=== PATIENT | male | born 1990 | race Caucasian/White ===

== ENCOUNTER 2022-06-22 23:33 | Inpatient (IN) | payer OTHER, SELFPAY ==
--- NOTE | ~2022-06-22 | CT_ITS ---
EXAMINATION: CT ABDOMEN AND PELVIS WITH CONTRAST CLINICAL INFORMATION: Pain COMPARISON: None available. TECHNIQUE: Multidetector volumetric images were obtained from the superior aspect of the liver through the pubic symphysis following administration 85 mL of Omnipaque 350 intravenous contrast. Sagittal and coronal reformatted images were obtained on the technologist's workstation. Oral contrast: No This CT examination was performed using dose optimization techniques as appropriate, variously including the following: *Automated exposure control *Adjustment of mA and/or kV according to patient size (this includes techniques or standardized protocols for targeted exams where dose is matched to indication/reason for exam; i.e. extremities or head) *Use of iterative reconstruction technique DLP: 528 mGy-cm FINDINGS: LUNG BASES: The visualized lung bases are unremarkable. LIVER, GALLBLADDER, AND BILIARY TREE: The liver is normal in size, shape, and attenuation. No focal hepatic lesion or biliary ductal dilatation is present. The gallbladder is unremarkable with no evidence of radiopaque gallstones, gallbladder wall thickening, or obvious pericholecystic inflammatory changes. PANCREAS: Unremarkable. SPLEEN: Unremarkable. ADRENAL GLANDS: Unremarkable. KIDNEYS AND URETERS: The kidneys are normal in size, shape, and attenuation. No hydronephrosis, hydroureter, or calculi seen. No perinephric stranding. BLADDER: Unremarkable. GASTROINTESTINAL TRACT: The stomach is unremarkable. Normal caliber small bowel. No obstruction. Normal appendix. There is wall thickening with adjacent inflammation involving the left hemicolon spanning from the splenic flexure. No free air or free fluid. ABDOMINAL WALL: No significant hernia is appreciated. LYMPH NODES: Normal. VASCULAR: Unremarkable. PELVIC VISCERA: The prostate and seminal vesicles are unremarkable. OSSEOUS STRUCTURES: No acute or suspicious osseous abnormality. CT/CT abdomen pelvis w IV con IMPRESSION: Wall thickening with adjacent inflammation involving the left hemicolon, consistent with colitis. Fleischner guidelines were followed.
--- NOTE | ~2022-06-22 | XR_ITS ---
EXAMINATION: XR CHEST CLINICAL INFORMATION: Weakness COMPARISON: None available. TECHNIQUE: Frontal view of the chest was obtained. FINDINGS: Cardiac leads overlie the chest. The lungs are well expanded. There is no focal consolidation, edema, or effusion. No pneumothorax. The cardiomediastinal silhouette is within normal limits. No acute osseous abnormality. XR/XR chest 1V IMPRESSION: No acute pulmonary disease.
[2022-06-22 23:49] VITALS: BP 147/69; PULSE 145; RESP 20; TEMP 38.7; O2SAT 100; BMI 20.3
[2022-06-23] VITALS (9 sets, daily range): BP systolic 94–128; BP diastolic 43–66; PULSE 80–130; RESP 14–22; TEMP 36.6–37.4; O2SAT 96–99; BMI 20.3
[2022-06-23 00:32] LABS: MANUAL DIFF FLAG NO
[2022-06-23 00:36] LABS: Basophils Percent Auto 0.1 % (0-2); Hematocrit 40.9 % (42.0-52.0); Hemoglobin 14.6 g/dl (14.0-18.0); Imm Gran Abs Auto 0.07 X10*3/uL (0.00-0.03); Imm Gran Pct Auto 0.5 % (0.0-0.4); Lymphocytes Absolute Auto 0.5 X10*3/uL (1.2-4.9); Lymphocytes Percent Auto 3.7 % (20-40); Mean Corpuscular HGB Conc 35.7 g/dl (31.0-36.0); Mean Corpuscular Hemoglobin 31.6 pg (27.0-33.0); Mean Corpuscular Volume 88.5 fL (80.0-98.0); Mean Platelet Volume 9.3 fL (9.4-12.4); Monocytes Absolute Auto 1.1 X10*3/uL (0.1-1.2); Monocytes Percent Auto 8.1 % (2-11); Neutrophils Percent Auto 87.6 % (45-73); Platelet Count 181 X10*3/uL (160-400); Red Blood Count 4.62 X10*6/uL (4.60-5.80); Red Cell Distribution Width 11.9 % (11.0-16.0); White Blood Count 13.7 X10*3/uL (4.8-10.8)
[2022-06-23 00:46] LABS: Anion Gap 11 (12-20); Blood Urea Nitrogen 15 mg/dL (9-16); Calcium 8.5 mg/dL (8.4-10.2); Carbon Dioxide 23 mmol/L (22-29); Chloride 105 mmol/L (96-108); Creatinine Clr Calc Pharmacy 83.4; Estimated Glomerular Filt Rate > 60; Glucose Random 109 mg/dL (60-115); Potassium 3.6 mmol/L (3.3-5.1); Sodium 135 mmol/L (135-145)
--- NOTE | 2022-06-23 00:59 | ED_ITS ---
HPI - General Adult General Chief complaint: Fever <Chalino Maher Last Filed: 06/23/22 02:09> Stated complaint: Dehydrated? <Chalino Maher Last Filed: 06/23/22 02:09> Time Seen by Provider: 06/23/22 00:33 <Chalino Maher Last Filed: 06/23/22 02:09> Source: patient and RN notes reviewed <Chalino Maher Last Filed: 06/23/22 02:09> Mode of arrival: ambulatory <Chalino Maher Last Filed: 06/23/22 02:09> Limitations: no limitations <Chalino Maher Last Filed: 06/23/22 02:09> History of Present Illness HPI narrative: 32-year-old male who denies any past medical history presents for evaluation of fevers, weakness. Patient reports that his symptoms started this past Saturday, 3 days ago He reports he recently returned from a trip from [place] He endorses heavy drinking to celebrate his birthday democrat Patient states that he ?received azithromycin 1 g on Saturday from a friend who is a PA. Is unclear exactly what was being treated as the patient states his diarrhea did not start until after this The patient reports on and off abdominal pain. He did note blood in his stool earlier today The patient went to urgent care earlier today and was treated with metronidazole for presumed C diff but his test results have not come back yet <Chalino Maher Last Filed: 06/23/22 02:09> Related Data Allergies/adverse reactions: Allergies Allergy/AdvReac Type Severity Reaction Status Date / Time No Known Allergies Allergy Unverified 11/12/19 19:00 [No Known Allergies*] <Chalino Maher Last Filed: 06/23/22 02:09> Review of Systems Constitutional: Constitutional: Reports as per HPI <Chalino Maher Last Filed: 06/23/22 02:09> Cardiovascular: Cardiovascular: Denies chest pain and Denies dyspnea <Chalino Maher Last Filed: 06/23/22 02:09> Respiratory: Respiratory: Denies cough and Denies dyspnea <Chalinonancy Merino Last Filed: 06/23/22 02:09> Gastrointestinal: Gastrointestinal: Denies constipation and Denies vomiting <Chalino Maher - Last Filed: 06/23/22 02:09> Genitourinary: Genitourinary: Denies difficulty urinating and Denies dysuria <Chalino Maher - Last Filed: 06/23/22 02:09> Neurologic: Denies focal weakness <Chalino Maher - Last Filed: 06/23/22 02:09> [facility] Social History Social History: Social History Advance Directives: No Advance Directives Information Provided: Yes <Chalino Maher - Last Filed: 06/23/22 02:09> Physical Exam ED Vital Signs: Vital Signs - 24 hr 06/22/22 23:49 06/23/22 00:13 06/23/22 00:36 Temperature 101.6 F H 99 F 98.8 F Pulse Rate 145 H 127 H 130 H Respiratory Rate 20 17 16 Blood Pressure 147/69 H 106/51 L 101/52 L Pulse Oximetry 100 98 98 Oxygen Delivery Method Room Air Room Air Room Air 06/23/22 01:30 06/23/22 03:34 06/23/22 06:03 Temperature 99.4 F 99 F 98.2 F Pulse Rate 123 H 120 H 102 H Respiratory Rate 19 18 22 H Blood Pressure 109/49 L 94/43 L 112/53 L Pulse Oximetry 99 96 98 Oxygen Delivery Method Room Air Room Air Room Air BMI result Body Mass Index 20.3 <Chalino Maher - Last Filed: 06/23/22 02:09> Vital Signs - 24 hr 06/22/22 23:49 06/23/22 00:13 06/23/22 00:36 Temperature 101.6 F H 99 F 98.8 F Pulse Rate 145 H 127 H 130 H Respiratory Rate 20 17 16 Blood Pressure 147/69 H 106/51 L 101/52 L Pulse Oximetry 100 98 98 Oxygen Delivery Method Room Air Room Air Room Air 06/23/22 01:30 06/23/22 03:34 06/23/22 06:03 Temperature 99.4 F 99 F 98.2 F Pulse Rate 123 H 120 H 102 H Respiratory Rate 19 18 22 H Blood Pressure 109/49 L 94/43 L 112/53 L Pulse Oximetry 99 96 98 Oxygen Delivery Method Room Air Room Air Room Air BMI result Body Mass Index 20.3 <Landy Barber MD - Last Filed: 06/23/22 06:10> Const General: healthy appearing, comfortable, no acute distress, alert and awake <Chalino SchusterQueen Anne'S - Last Filed: 06/23/22 02:09> Nutritional Appearance: well nourished <Chalino MarielyQueen Anne'S - Last Filed: 06/23/22 02:09> Orientation/consciousness: patient oriented x3 <Chalino [facility] - Last Filed: 06/23/22 02:09> HENMT Head: Yes normocephalic and Yes atraumatic < - Last Filed: 06/23/22 02:09> Throat: Yes posterior oropharynx normal <Chalino [facility] - Last Filed: 06/23/22 02:09> Eyes Eyelids: Yes eyelids normal <Chalino Mayank - Last Filed: 06/23/22 02:09> Conjunctivae: conjunctivae normal <Chalino [facility] - Last Filed: 06/23/22 02:09> Sclerae: sclerae normal < Last Filed: 06/23/22 02:09> Corneas: corneas normal <Chalino Last Filed: 06/23/22 02:09> Pupils: Equal, round and reactive pupils present <Chalino OQueen Anne'S - Last Filed: 06/23/22 02:09> EOM: EOMs intact bilaterally <Chalino OQueen Anne'S - Last Filed: 06/23/22 02:09> Neck Neck: Yes full ROM <Chalino MarielyMayank - Last Filed: 06/23/22 02:09> Resp Effort & Inspection: normal respiratory effort, able to speak in complete sentences, no audible wheezes and not labored <Chalino OQueen [facility]'S - Last Filed: 06/23/22 02:09> Auscultation: clear to auscultation bilaterally <Chalino OQueen Anne'S - Last Filed: 06/23/22 02:09> Cardio Rate: regular rate <Chalino O - Last Filed: 06/23/22 02:09> Rhythm: regular rhythm <Chalino O - Last Filed: 06/23/22 02:09> GI Inspection: No distended <Chalino SchusterMayank - Last Filed: 06/23/22 02:09> Palpation (GI): Soft to palpation, not firm, nontender, no guarding and not rigid <Chalino O[facility] - Last Filed: 06/23/22 02:09> Auscultation: normoactive bowel sounds <Chalino OQueen [facility] - Last Filed: 06/23/22 02:09> Skin General skin exam: no rashes or lesions noted and elasticity normal <Chalino OMayank - Last Filed: 06/23/22 02:09> Neuro General: patient oriented x3 <Chalino OMayank - Last Filed: 06/23/22 02:09> Cranial nerves: Yes Equal, round and reactive pupils present and Yes Bilaterally intact EOM present <Chalino OQueen [facility]'S - Last Filed: 06/23/22 02:09> Cognition (Neuro): normal cognition <Chalino OQueen Anne'S - Last Filed: 06/23/22 02:09> Extrem Other: Moving all extremities well without any obvious deformities <Chalino OMayank - Last Filed: 06/23/22 02:09> Course Reevaluation(s) Reevaluation #1: Acute UTI this patient's labs are reassuring, he does have a leukocytosis of 13.7 K with a left shift. His chemistries are within normal limits. No evidence of kidney injury, his lactate is normal. Still awaiting stool sample will get a CT scan of the abdomen pelvis. Chest x-ray is clear, UA does not show any signs of infection <Chalino SchusterQueen Anne'S - Last Filed: 06/23/22 02:09> Time: 02:09 <Chalinonancy Merino Last Filed: 06/23/22 02:09> Medications Administered Discontinued Medications Generic Name Dose Route Start Last Admin Trade Name Giuseppeq PRN Reason Stop Dose Admin Acetaminophen 975 mg 06/23/22 01:33 06/23/22 02:29 Acetaminophen 325 Mg Tablet PO 06/23/22 01:34 975 mg ONCE ONE Administration Sodium Chloride 1,000 mls @ 999 mls/hr 06/22/22 23:45 06/23/22 05:58 Ns IV 06/23/22 00:45 Infused .Q1H1M QUETA Infusion Sodium Chloride 1,000 mls @ 999 mls/hr 06/23/22 01:30 06/23/22 03:55 Ns IV 06/23/22 02:30 Infused .Q1H1M QUETA Infusion Sodium Chloride 1,000 mls @ 999 mls/hr 06/23/22 03:47 06/23/22 05:59 Ns IVCONT 06/23/22 04:47 Infused .Q1H1M ONE Infusion Iohexol 85 ml 06/23/22 02:50 06/23/22 02:51 Iohexol 350 Mg/Ml 100 Ml Infus..Btl IV 06/23/22 02:51 85 ml ONCE ONE Administration <Chalino Maher - Last Filed: 06/23/22 02:09> Medications Administered Discontinued Medications Generic Name Dose Route Start Last Admin Trade Name Freq PRN Reason Stop Dose Admin Acetaminophen 975 mg 06/23/22 01:33 06/23/22 02:29 Acetaminophen 325 Mg Tablet PO 06/23/22 01:34 975 mg ONCE ONE Administration Sodium Chloride 1,000 mls @ 999 mls/hr 06/22/22 23:45 06/23/22 05:58 Ns IV 06/23/22 00:45 Infused .Q1H1M QUETA Infusion Sodium Chloride 1,000 mls @ 999 mls/hr 06/23/22 01:30 06/23/22 03:55 Ns IV 06/23/22 02:30 Infused .Q1H1M QUETA Infusion Sodium Chloride 1,000 mls @ 999 mls/hr 06/23/22 03:47 06/23/22 05:59 Ns IVCONT 06/23/22 04:47 Infused .Q1H1M ONE Infusion Iohexol 85 ml 06/23/22 02:50 06/23/22 02:51 Iohexol 350 Mg/Ml 100 Ml Infus..Btl IV 06/23/22 02:51 85 ml ONCE ONE Administration <Landy Barber MD - Last Filed: 06/23/22 06:10> Medical Decision Making Medical Decision Making MDM Narrative: 32-year-old male presents with bloody diarrhea taking antibiotics, he is febrile, tachycardic and slightly hypotensive. He is on receiving IV fluids. Workup is pending at this time. His abdomen exam is benign, he is nontender, nondistended. Will get chest x-ray, UA, C diff testing. <Chalino Nika - Last Filed: 06/23/22 02:09> 32-year-old male presents with bloody diarrhea taking antibiotics, he is febrile, tachycardic and slightly hypotensive. He is on receiving IV fluids. Workup is pending at this time. His abdomen exam is benign, he is nontender, nondistended. Will get chest x-ray, UA, C diff testing. -pt does not have a significant amount of diarrhea. Unlikely to be C diff. -CT scan shows possible colitis. -patient started on antibiotics, levofloxacin and metronidazole. -sepsis not suspected <Landy Barber MD - Last Filed: 06/23/22 06:10> Differential Diagnosis C diff Diverticulitis Colitis Dehydration <Chalino Maher - Last Filed: 06/23/22 02:09> Admission/Observation Consideration of admission/observation: Escalation of care including admission/observation considered <Landy Barber MD - Last Filed: 06/23/22 06:10> Consult Healthcare Provider Management of the patient was discussed with: Hospitalist <Ladny Barber MD - Last Filed: 06/23/22 06:10> Lab Data MDM Lab Attestation statement: I reviewed the patient's lab results. <Chalino Maher - Last Filed: 06/23/22 02:09> Result Diagrams: 06/23/22 00:25 06/23/22 00:25 <Chalino Maher - Last Filed: 06/23/22 02:09> Labs: Lab Results 06/23/22 06/23/22 06/23/22 Range/Units 00:25 00:25 00:25 WBC 13.7 H (4.8-10.8) X10*3/uL RBC 4.62 (4.60-5.80) X10*6/uL Hgb 14.6 (14.0-18.0) g/dl Hct 40.9 L (42.0-52.0) % MCV 88.5 (80.0-98.0) fL MCH 31.6 (27.0-33.0) pg MCHC 35.7 (31.0-36.0) g/dl RDW 11.9 (11.0-16.0) % Plt Count 181 (160-400) X10*3/uL MPV 9.3 L (9.4-12.4) fL Immature Gran % (Auto) 0.5 H (0.0-0.4) % Neut % (Auto) 87.6 H (45-73) % Lymph % (Auto) 3.7 L (20-40) % Thomas % (Auto) 8.1 (2-11) % Eos % (Auto) 0.0 (0-4) % Baso % (Auto) 0.1 (0-2) % Lymph # (Auto) 0.5 L (1.2-4.9) X10*3/uL Thomas # (Auto) 1.1 (0.1-1.2) X10*3/uL Eos # (Auto) 0.0 (0.0-0.4) X10*3/uL Baso # (Auto) 0.0 (0.0-0.2) X10*3/uL Abs Immat Gran (auto) 0.07 H (0.00-0.03) X10*3/uL Absolute Neuts (auto) 12.0 H (2.0-8.3) x10*3/uL Absolute Nucleated RBC 0.000 (0.0-0.012) X10*3/uL Nucleated RBC % (auto) 0.0 (0.0-0.2) /100WBC Sodium 135 (135-145) mmol/L Potassium 3.6 (3.3-5.1) mmol/L Chloride 105 (96-108) mmol/L Carbon Dioxide 23 (22-29) mmol/L Anion Gap 11 L (12-20) BUN 15 (9-16) mg/dL Creatinine 1.08 (0.5-1.4) mg/dL Estim Creat Clear Calc 83.4 Estimated GFR > 60 Random Glucose 109 (60-115) mg/dL Lactic Acid 1.0 (0.5-2.0) mmol/L Calcium 8.5 (8.4-10.2) mg/dL Urine Color Urine Appearance Urine pH (5.0-9.0) Ur Specific [place] (1.005-1.025) Urine Protein (Neg-Trace) mg/dL Urine Glucose (UA) (Negative) mg/dL Urine Ketones (Negative) mg/dL Urine Blood (Negative) Urine Nitrite (Negative) Ur Leukocyte Esterase (Negative) Urine RBC (0-2) /HPF Urine WBC (0-5) /HPF Ur Squamous Epith Cells (0-2) /HPF Urine Bacteria (None Seen) Hyaline Casts (0-2) /LPF C. difficile Tox B Gene (Negative) Influenza Type A (PCR) (Negative) Influenza Type B (PCR) (Negative) RSV RNA Qual (PCR) (Negative) SARS-CoV-2 RNA (RT-PCR) (Negative) 06/23/22 06/23/22 06/23/22 Range/Units 01:29 01:29 01:29 WBC (4.8-10.8) X10*3/uL RBC (4.60-5.80) X10*6/uL Hgb (14.0-18.0) g/dl Hct (42.0-52.0) % MCV (80.0-98.0) fL MCH (27.0-33.0) pg MCHC (31.0-36.0) g/dl RDW (11.0-16.0) % Plt Count (160-400) X10*3/uL MPV (9.4-12.4) fL Immature Gran % (Auto) (0.0-0.4) % Neut % (Auto) (45-73) % Lymph % (Auto) (20-40) % Thomas % (Auto) (2-11) % Eos % (Auto) (0-4) % Baso % (Auto) (0-2) % Lymph # (Auto) (1.2-4.9) X10*3/uL Thomas # (Auto) (0.1-1.2) X10*3/uL Eos # (Auto) (0.0-0.4) X10*3/uL Baso # (Auto) (0.0-0.2) X10*3/uL Abs Immat Gran (auto) (0.00-0.03) X10*3/uL Absolute Neuts (auto) (2.0-8.3) x10*3/uL Absolute Nucleated RBC (0.0-0.012) X10*3/uL Nucleated RBC % (auto) (0.0-0.2) /100WBC Sodium (135-145) mmol/L Potassium (3.3-5.1) mmol/L Chloride (96-108) mmol/L Carbon Dioxide (22-29) mmol/L Anion Gap (12-20) BUN (9-16) mg/dL Creatinine (0.5-1.4) mg/dL Estim Creat Clear Calc Estimated GFR Random Glucose (60-115) mg/dL Lactic Acid (0.5-2.0) mmol/L Calcium (8.4-10.2) mg/dL Urine Color Yellow Urine Appearance Clear Urine pH 5.5 (5.0-9.0) Ur Specific [place] 1.025 (1.005-1.025) Urine Protein Trace (Neg-Trace) mg/dL Urine Glucose (UA) Negative (Negative) mg/dL Urine Ketones 40 (Negative) mg/dL Urine Blood Negative (Negative) Urine Nitrite Negative (Negative) Ur Leukocyte Esterase Trace H (Negative) Urine RBC 0-2 (0-2) /HPF Urine WBC 0-5 (0-5) /HPF Ur Squamous Epith Cells 0-2 (0-2) /HPF Urine Bacteria None Seen (None Seen) Hyaline Casts 0-2 (0-2) /LPF C. difficile Tox B Gene NEGATIVE (Negative) Influenza Type A (PCR) NEGATIVE (Negative) Influenza Type B (PCR) NEGATIVE (Negative) RSV RNA Qual (PCR) NEGATIVE (Negative) SARS-CoV-2 RNA (RT-PCR) NEGATIVE (Negative) <Chalino Maher - Last Filed: 06/23/22 02:09> Lab Results 06/23/22 06/23/22 06/23/22 Range/Units 00:25 00:25 00:25 WBC 13.7 H (4.8-10.8) X10*3/uL RBC 4.62 (4.60-5.80) X10*6/uL Hgb 14.6 (14.0-18.0) g/dl Hct 40.9 L (42.0-52.0) % MCV 88.5 (80.0-98.0) fL MCH 31.6 (27.0-33.0) pg MCHC 35.7 (31.0-36.0) g/dl RDW 11.9 (11.0-16.0) % Plt Count 181 (160-400) X10*3/uL MPV 9.3 L (9.4-12.4) fL Immature Gran % (Auto) 0.5 H (0.0-0.4) % Neut % (Auto) 87.6 H (45-73) % Lymph % (Auto) 3.7 L (20-40) % Thomas % (Auto) 8.1 (2-11) % Eos % (Auto) 0.0 (0-4) % Baso % (Auto) 0.1 (0-2) % Lymph # (Auto) 0.5 L (1.2-4.9) X10*3/uL Thomas # (Auto) 1.1 (0.1-1.2) X10*3/uL Eos # (Auto) 0.0 (0.0-0.4) X10*3/uL Baso # (Auto) 0.0 (0.0-0.2) X10*3/uL Abs Immat Gran (auto) 0.07 H (0.00-0.03) X10*3/uL Absolute Neuts (auto) 12.0 H (2.0-8.3) x10*3/uL Absolute Nucleated RBC 0.000 (0.0-0.012) X10*3/uL Nucleated RBC % (auto) 0.0 (0.0-0.2) /100WBC Sodium 135 (135-145) mmol/L Potassium 3.6 (3.3-5.1) mmol/L Chloride 105 (96-108) mmol/L Carbon Dioxide 23 (22-29) mmol/L Anion Gap 11 L (12-20) BUN 15 (9-16) mg/dL Creatinine 1.08 (0.5-1.4) mg/dL Estim Creat Clear Calc 83.4 Estimated GFR > 60 Random Glucose 109 (60-115) mg/dL Lactic Acid 1.0 (0.5-2.0) mmol/L Calcium 8.5 (8.4-10.2) mg/dL Urine Color Urine Appearance Urine pH (5.0-9.0) Ur Specific [place] (1.005-1.025) Urine Protein (Neg-Trace) mg/dL Urine Glucose (UA) (Negative) mg/dL Urine Ketones (Negative) mg/dL Urine Blood (Negative) Urine Nitrite (Negative) Ur Leukocyte Esterase (Negative) Urine RBC (0-2) /HPF Urine WBC (0-5) /HPF Ur Squamous Epith Cells (0-2) /HPF Urine Bacteria (None Seen) Hyaline Casts (0-2) /LPF C. difficile Tox B Gene (Negative) Influenza Type A (PCR) (Negative) Influenza Type B (PCR) (Negative) RSV RNA Qual (PCR) (Negative) SARS-CoV-2 RNA (RT-PCR) (Negative) 06/23/22 06/23/22 06/23/22 Range/Units 01:29 01: 01:29 WBC (4.8-10.8) X10*3/uL RBC (4.60-5.80) X10*6/uL Hgb (14.0-18.0) g/dl Hct (42.0-52.0) % MCV (80.0-98.0) fL MCH (27.0-33.0) pg MCHC (31.0-36.0) g/dl RDW (11.0-16.0) % Plt Count (160-400) X10*3/uL MPV (9.4-12.4) fL Immature Gran % (Auto) (0.0-0.4) % Neut % (Auto) (45-73) % Lymph % (Auto) (20-40) % Thomas % (Auto) (2-11) % Eos % (Auto) (0-4) % Baso % (Auto) (0-2) % Lymph # (Auto) (1.2-4.9) X10*3/uL Thomas # (Auto) (0.1-1.2) X10*3/uL Eos # (Auto) (0.0-0.4) X10*3/uL Baso # (Auto) (0.0-0.2) X10*3/uL Abs Immat Gran (auto) (0.00-0.03) X10*3/uL Absolute Neuts (auto) (2.0-8.3) x10*3/uL Absolute Nucleated RBC (0.0-0.012) X10*3/uL Nucleated RBC % (auto) (0.0-0.2) /100WBC Sodium (135-145) mmol/L Potassium (3.3-5.1) mmol/L Chloride (96-108) mmol/L Carbon Dioxide (22-29) mmol/L Anion Gap (12-20) BUN (9-16) mg/dL Creatinine (0.5-1.4) mg/dL Estim Creat Clear Calc Estimated GFR Random Glucose (60-115) mg/dL Lactic Acid (0.5-2.0) mmol/L Calcium (8.4-10.2) mg/dL Urine Color Yellow Urine Appearance Clear Urine pH 5.5 (5.0-9.0) Ur Specific [place] 1.025 (1.005-1.025) Urine Protein Trace (Neg-Trace) mg/dL Urine Glucose (UA) Negative (Negative) mg/dL Urine Ketones 40 (Negative) mg/dL Urine Blood Negative (Negative) Urine Nitrite Negative (Negative) Ur Leukocyte Esterase Trace H (Negative) Urine RBC 0-2 (0-2) /HPF Urine WBC 0-5 (0-5) /HPF Ur Squamous Epith Cells 0-2 (0-2) /HPF Urine Bacteria None Seen (None Seen) Hyaline Casts 0-2 (0-2) /LPF C. difficile Tox B Gene NEGATIVE (Negative) Influenza Type A (PCR) NEGATIVE (Negative) Influenza Type B (PCR) NEGATIVE (Negative) RSV RNA Qual (PCR) NEGATIVE (Negative) SARS-CoV-2 RNA (RT-PCR) NEGATIVE (Negative) <Landy Barber MD - Last Filed: 06/23/22 06:10> Critical Care Time Critical Care Time Critical Care Time: Yes <Landy Barber MD - Last Filed: 06/23/22 06:10> Total Critical Care Time: 60 <Landy Barber MD - Last Filed: 06/23/22 06:10> Attestation: Please follow-up with your primary care physician tomorrow. If you have any worsening or new symptoms, please return to the emergency room or call 911 <Landy Barber MD - Last Filed: 06/23/22 06:10> Discharge Plan Discharge Clinical Impression: Colitis <Chalino Maher - Last Filed: 06/23/22 02:09> Patient Disposition: Admitted As Inpatient <Chalino Maher - Last Filed: 06/23/22 02:09>
[2022-06-23] MEDS: 0.9 % Sodium Chloride 1,000 ML 999 ML IV ×2 (01:26→02:30)
[2022-06-23 01:47] LABS: Appearance Urine Clear; Color Urine Yellow; Glucose Urine UA Negative (Negative); Leukocyte Esterase Urine Trace (Negative); Nitrite Urine Negative (Negative); PH 5.5 (5.0-9.0); Specific Gravity - Urine 1.025 (1.005-1.025); UMIC TRIGGER UACC YES; Urine Blood Negative (Negative); Urine Ketones 40 mg/dL (Negative); Urine Protein Trace mg/dL (Neg-Trace)
[2022-06-23 01:52] LABS: Bacteria Urine None Seen (None Seen); Hyaline Casts Urine 0-2 /LPF (0-2); RBC Urine 0-2 /HPF (0-2); Squamous Epithelial Cell Urine 0-2 /HPF (0-2); WBC Urine 0-5 /HPF (0-5)
--- NOTE | 2022-06-23 02:23 | PC.NURSE ---
Pt's skin is warm to touch, HR 120's sinus tach. Pt awake and alert, diffuse mild abdominal cramping. Pt was ambulatory to bathroom where he was able to provide urine and watery stool sample.
[2022-06-23 02:25] LABS: Influenza A PCR NEGATIVE (Negative); Influenza B PCR NEGATIVE (Negative); Resp Syncy Virus RNA Qual PCR NEGATIVE (Negative); SARS COV2 PCR INHOUSE NEGATIVE (Negative)
[2022-06-23] MEDS: Acetaminophen 325 MG TABLET 975 MG PO (02:29)
[2022-06-23 02:43] LABS: CDiff Gene PCR NEGATIVE (Negative)
[2022-06-23] MEDS: iohexoL 350 MG/ML 100 ML INFUS..BTL 85 ML IV (02:51)
--- NOTE | 2022-06-23 03:53 | PC.NURSE ---
Pt has been able to ambulate to bathroom down the baker with complaint of dizziness or dyspnea. MD Barber aware that Pt's systolic BP still in the 90's following 2 L normal saline.
[2022-06-23] MEDS: 0.9 % Sodium Chloride 1,000 ML 999 ML IVCONT (04:03)
--- NOTE | 2022-06-23 06:13 | P.HPHOSP_ITS ---
History of Present Illness Date of Service: 06/23/22 Chief Complaint: Diarrhea This is a 32-year-old male with no pertinent past medical history and not on prescription medications presents to the emergency department for evaluation of abdominal discomfort and diarrhea. Patient states it started on the day of pre sentation. He had a salad 1 day ago. Also complains of fevers and chills. Has been having nausea and poor p.o. intake. Patient recently visited [place]. No similar complaints in family members. No similar history in the past. Patient states he had around 10-15 episodes of loose stools throughout the day with about 1-2 episodes of blood mixed with stool. He denies chest discomfort, shortness of breath, palpitations, changes in urinary habits. In the emergency department, patient was found to be septic and imaging concerning for colitis PMFSH Pertinent family history: No family history of early CAD Social History Advance Directives: No Advance Directives Information Provided: Yes Meds Allergies Allergy/AdvReac Type Severity Reaction Status Date / Time No Known Allergies Allergy Unverified 11/12/19 19:00 [No Known Allergies*] Active Medications: Current Medications Acetaminophen (Acetaminophen 325 Mg Tablet) 650 mg PO Q6H PRN PRN Reason: Pain, Mild (Pain Scale 1-3) Metronidazole (Flagyl) 500 mg in 100 mls @ 100 mls/hr IV ONCE ONE Stop: 06/23/22 07:07 Metronidazole (Flagyl) 500 mg in 100 mls @ 100 mls/hr IV Q8H QUETA Levofloxacin (Levaquin) 750 mg in 150 mls @ 100 mls/hr IV Q24H QUETA Melatonin (Melatonin 3 Mg Tablet) 6 mg PO BEDTIME PRN PRN Reason: Insomnia Ondansetron HCl (Ondansetron Hcl 4 Mg/2 Ml Vial) 4 mg IVPUSH Q8H PRN PRN Reason: Nausea and Vomiting Sodium Chloride (0.9 % Sodium Chloride Flush 3 Ml Syringe) 3 ml IVFLUSH QSHIFT QUETA Physical Exam Vital Signs and Narrative: Vital Signs: Last Vital Signs Temp 98.2 F 06/23/22 06:03 Pulse 102 H 06/23/22 06:03 Resp 22 H 06/23/22 06:03 BP 112/53 L 06/23/22 06:03 Pulse Ox 98 06/23/22 06:03 O2 Del Method Room Air 06/23/22 06:03 BMI result Body Mass Index 20.3 Middle-aged male lying in bed in no distress Neck supple, no JVD Tachycardic with regular rhythm, S1-S2 heard Regular breath sounds bilaterally, no wheezing or crackles appreciated Abdomen with mild generalized tenderness, no guarding, no rigidity, no rebound tenderness Patient is awake, alert and oriented to self, place, time and person ; no focal motor deficit Psych: Normal mood No pedal edema Results Labs 06/23/22 00:25 06/23/22 00:25 Labs: Laboratory Results - last 24 hr 06/23/22 06/23/22 06/23/22 00:25 00:25 00:25 MCV 88.5 MCH 31.6 MCHC 35.7 RDW 11.9 Plt Count 181 MPV 9.3 L Immature Gran % (Auto) 0.5 H Neut % (Auto) 87.6 H Lymph % (Auto) 3.7 L [place] % (Auto) 8.1 Eos % (Auto) 0.0 Baso % (Auto) 0.1 Lymph # (Auto) 0.5 L [place] # (Auto) 1.1 Eos # (Auto) 0.0 Baso # (Auto) 0.0 Abs Immat Gran (auto) 0.07 H Absolute Neuts (auto) 12.0 H Absolute Nucleated RBC 0.000 Nucleated RBC % (auto) 0.0 Anion Gap 11 L Estim Creat Clear Calc 83.4 Estimated GFR > 60 Random Glucose 109 Lactic Acid 1.0 Calcium 8.5 Urine Color Urine Appearance Urine pH Ur Specific [place] Urine Protein Urine Glucose (UA) Urine Ketones Urine Blood Urine Nitrite Ur Leukocyte Esterase Urine RBC Urine WBC Ur Squamous Epith Cells Urine Bacteria Hyaline Casts C. difficile Tox B Gene Influenza Type A (PCR) Influenza Type B (PCR) RSV RNA Qual (PCR) SARS-CoV-2 RNA (RT-PCR) 06/23/22 06/23/22 06/23/22 01:29 01:29 01:29 MCV MCH MCHC RDW Plt Count MPV Immature Gran % (Auto) Neut % (Auto) Lymph % (Auto) [place] % (Auto) Eos % (Auto) Baso % (Auto) Lymph # (Auto) [place] # (Auto) Eos # (Auto) Baso # (Auto) Abs Immat Gran (auto) Absolute Neuts (auto) Absolute Nucleated RBC Nucleated RBC % (auto) Anion Gap Estim Creat Clear Calc Estimated GFR Random Glucose Lactic Acid Calcium Urine Color Yellow Urine Appearance Clear Urine pH 5.5 Ur Specific [place] 1.025 Urine Protein Trace Urine Glucose (UA) Negative Urine Ketones 40 Urine Blood Negative Urine Nitrite Negative Ur Leukocyte Esterase Trace H Urine RBC 0-2 Urine WBC 0-5 Ur Squamous Epith Cells 0-2 Urine Bacteria None Seen Hyaline Casts 0-2 C. difficile Tox B Gene NEGATIVE Influenza Type A (PCR) NEGATIVE Influenza Type B (PCR) NEGATIVE RSV RNA Qual (PCR) NEGATIVE SARS-CoV-2 RNA (RT-PCR) NEGATIVE Imaging Radiologist's Impressions: Impressions Chest X-Ray 06/23/22 00:17 IMPRESSION: No acute pulmonary disease. Abdomen/Pelvis CT 06/23/22 02:30 IMPRESSION: Wall thickening with adjacent inflammation involving the left hemicolon, consistent with colitis. Fleischner guidelines were followed. Assessment and Plan (1) Colitis: Status: Acute Plan This is a 32-year-old male with no pertinent past medical history and not on prescription medications presents to the emergency department for evaluation of abdominal discomfort and diarrhea. #. Sepsis secondary to colitis: Likely infectious. Resuscitated with IV crystalloids. Initiating empiric IV antibiotics. Stool studies pending. Lactic acid and blood culture obtained. DVT prophylaxis: None. Patient is ambulatory Full code Regular diet Admit as inpatient and will require two night minimum hospital stay for IV antibiotics Time Spent With Patient Time: Total time managing care of this patient today ____ minutes. Quality Stroke Does the patient have a stroke diagnosis?: No VTE Prior VTE?: No VTE Risk Level:: Medical - low VTE Device Contraindication: Treatment Not Indicated VTE Drug Contraindication: Treatment Not Indicated
--- NOTE | 2022-06-23 06:38 | PC.NURSE ---
Pt has been hydrating well with ice water.
[2022-06-23] MEDS: metroNIDAZOLE/NS 500 MG/100 ML PIGGYBACK 100 MG IV ×3 (06:58→22:46)
--- NOTE | 2022-06-23 07:11 | PC.NURSE ---
Report given to Addie MONK.
[2022-06-23] MEDS: 0.9 % Sodium Chloride Flush 3 ML SYRINGE IVFLUSH ×2 (08:06→20:15)
[2022-06-23] MEDS: levoFLOXacin/D5W 750 MG/150 ML PIGGYBACK 100 MG IV (08:06)
[2022-06-23 10:48] LABS: Adenovirus F 40/41 Not Detected (Not Detect.); Astrovirus Not Detected (Not Detect.); Campylobacter Not Detected (Not Detect.); Cryptosporidium Not Detected (Not Detect.); Cyclospora cayetanensis Not Detected (Not Detect.); E. coli EAEC Not Detected (Not Detect.); E. coli EPEC Not Detected (Not Detect.); E. coli ETEC Not Detected (Not Detect.); E. coli STEC Not Detected (Not Detect.); Entamoeba histolytica Not Detected (Not Detect.); Giardia lamblia Not Detected (Not Detect.); Norovirus GI/GII Not Detected (Not Detect.); Plesiomonas shigelloides Not Detected (Not Detect.); Rotavirus A Not Detected (Not Detect.); Salmonella Not Detected (Not Detect.); Sapovirus Not Detected (Not Detect.); Vibrio Not Detected (Not Detect.); Vibrio Cholerae Not Detected (Not Detect.); Yersinia enterocolitica Not Detected (Not Detect.)
[2022-06-23 10:51] LABS: Shigella sp./EIEC Detected (Not Detect.)
--- NOTE | 2022-06-23 11:02 | PM.EVENT ---
Event Note Date of Service: 06/23/22 Event Note: Pt seen and examined. Admitted with colitis from food borne infection. Continue Abx and advance diet, o/w assessment/plan per H and P of this morning Time Spent With Patient Time: Total time managing care of this patient today ____ minutes.
[2022-06-23] MEDS: Melatonin 3 MG TABLET 6 MG PO (21:21)
[2022-06-24 03:22] VITALS: BP 102/51; PULSE 86; RESP 18; TEMP 36.3; O2SAT 98
[2022-06-24] MEDS: metroNIDAZOLE/NS 500 MG/100 ML PIGGYBACK 100 MG IV (06:27)
[2022-06-24 06:30] LABS: MANUAL DIFF FLAG NO
[2022-06-24 06:53] LABS: Basophils Percent Auto 0.2 % (0-2); Eosinophils Absolute Auto 0.3 X10*3/uL (0.0-0.4); Eosinophils Percent Auto 2.6 % (0-4); Hematocrit 36.8 % (42.0-52.0); Imm Gran Abs Auto 0.06 X10*3/uL (0.00-0.03); Imm Gran Pct Auto 0.6 % (0.0-0.4); Lymphocytes Absolute Auto 1.4 X10*3/uL (1.2-4.9); Lymphocytes Percent Auto 14.8 % (20-40); Mean Corpuscular HGB Conc 35.3 g/dl (31.0-36.0); Mean Corpuscular Hemoglobin 32.1 pg (27.0-33.0); Mean Corpuscular Volume 90.9 fL (80.0-98.0); Mean Platelet Volume 9.8 fL (9.4-12.4); Monocytes Percent Auto 10.1 % (2-11); Neutrophils Absolute Auto 6.8 x10*3/uL (2.0-8.3); Neutrophils Percent Auto 71.7 % (45-73); Platelet Count 150 X10*3/uL (160-400); Red Blood Count 4.05 X10*6/uL (4.60-5.80); Red Cell Distribution Width 12.4 % (11.0-16.0); White Blood Count 9.5 X10*3/uL (4.8-10.8)
[2022-06-24 06:56] LABS: Anion Gap 10 (12-20); Blood Urea Nitrogen 12 mg/dL (9-16); Calcium 8.5 mg/dL (8.4-10.2); Carbon Dioxide 25 mmol/L (22-29); Chloride 110 mmol/L (96-108); Creatinine Clr Calc Pharmacy 97.9; Estimated Glomerular Filt Rate > 60; Glucose Random 89 mg/dL (60-115); Potassium 3.8 mmol/L (3.3-5.1); Sodium 141 mmol/L (135-145)
[2022-06-24] MEDS: levoFLOXacin/D5W 750 MG/150 ML PIGGYBACK 100 MG IV (07:50)
[2022-06-24] MEDS: 0.9 % Sodium Chloride Flush 3 ML SYRINGE IVFLUSH (07:50)
[2022-06-24 07:59] VITALS: BP 113/59; PULSE 75; RESP 18; TEMP 36.4; O2SAT 100
--- NOTE | 2022-06-24 09:01 | MHC.CM.PN ---
PATIENT IS FAMILIAR TO THIS [employer] NO CASE MANAGEMENT INTERVENTION NECESSARY IF PATIENT WERE TO NEED ASSISTANCE, CM WILL SECURE AN ALTERNATE CONTACT TO ASSESS NEEDS. PLAN IS DC HOME TODAY - NO SERVICES PER CONVERSATION WITH RN.
--- NOTE | 2022-06-24 10:34 | PM.DS ---
DS: Providers Provider Date of Service: 06/24/22 Date of admission: 06/23/22 06:05 Primary care physician: Unknown Physician DS: Diagnosis Discharge Diagnosis (1) Colitis: Status: Acute DS: Summary Hospital Course Hospital Course: Chief Complaint: Diarrhea This is a 32-year-old male with no pertinent past medical history and not on prescription medications presents to the emergency department for evaluation of abdominal discomfort and diarrhea.? Patient states it started on the day of presentation.? He had a salad 1 day ago.? Also complains of fevers and chills.? Has been having nausea and poor p.o. intake.? Patient recently visited [place].? No similar complaints in family members.? No similar history in the past.? Patient states he had around 10-15 episodes of loose stools throughout the day with about 1-2 episodes of blood mixed with stool.? He denies chest discomfort, shortness of breath, palpitations, changes in urinary habits. In the emergency department, patient was found to be septic and imaging concerning for colitis Hospital course: Patient presented with diarrhea and found to have colitis on CT and started on Levaquin. GI panel was positive for Shigella and therefore has shigella gastroenteritis and colitis from food poisoning. His symptoms are better and will be discharged with Cipro for total of 7 days of antibiotics, he doesn't have fever. he is tolerating regular diet. Time Spent with Patient Time attestation: Total time managing care of this patient today ____ minutes. Discharge coordination time: Greater than 30 minutes Quality: Safe Use of Opioids Does Pt have an Active Cancer Diagnosis on the Problem List?: No Quality: Stroke Does the patient have a stroke diagnosis?: No Physical Exam Vital Signs: Vital Signs: Last Vital Signs Temp 97.6 F 06/24/22 07:59 Pulse 75 06/24/22 07:59 Resp 18 06/24/22 07:59 BP 113/59 L 06/24/22 07:59 Pulse Ox 100 06/24/22 07:59 O2 Del Method Room Air 06/24/22 07:59 BMI result Body Mass Index 20.3 Const: Other: General: AO X 3, no acute distress Resp: CTA bilateral CVS: S1,S2,RRR GI: +BS, NT, no distention Skin: No rash Neuro: motor grossly intact Psych: appropriate affect DS: Data Data Completed and Pending Labs on day of discharge: Laboratory Results - last 24 hr 06/23/22 06/24/22 06/24/22 01:29 05:52 05:52 WBC 9.5 RBC 4.05 L Hgb 13.0 L Hct 36.8 L MCV 90.9 MCH 32.1 MCHC 35.3 RDW 12.4 Plt Count 150 L MPV 9.8 Immature Gran % (Auto) 0.6 H Neut % (Auto) 71.7 Lymph % (Auto) 14.8 L [place] % (Auto) 10.1 Eos % (Auto) 2.6 Baso % (Auto) 0.2 Lymph # (Auto) 1.4 [place] # (Auto) 1.0 Eos # (Auto) 0.3 Baso # (Auto) 0.0 Abs Immat Gran (auto) 0.06 H Absolute Neuts (auto) 6.8 Absolute Nucleated RBC 0.000 Nucleated RBC % (auto) 0.0 Sodium 141 Potassium 3.8 Chloride 110 H Carbon Dioxide 25 Anion Gap 10 L BUN 12 Creatinine 0.92 Estim Creat Clear Calc 97.9 Estimated GFR > 60 Random Glucose 89 Calcium 8.5 Stl C. cayetanensis PCR Not Detected Stool Rotavirus A PCR Not Detected Stl Adenov F 40/41 PCR Not Detected Stool Astrovirus (PCR) Not Detected Stool Campylobacter PCR Not Detected Stool Cryptosporidium PCR Not Detected Stl Sh Tox Pr E STEC PCR Not Detected Stool E coli O157 PCR Not applicable Stl Enterotoxigenic E PCR Not Detected Stool EPEC (PCR) Not Detected Stool EAEC (PCR) Not Detected Stl E. histolytica PCR Not Detected Stool Giardia Lamblia PCR Not Detected Stl P. shigelloides PCR Not Detected Stool Salmonella PCR Not Detected Stool Sapovirus (PCR) Not Detected Stl Shigella/EIEC PCR Detected A St Y.enterocolitica PCR Not Detected Stool Vibrio (PCR) Not Detected Stl Vibrio cholerae PCR Not Detected Stl Norovirus GI/GII PCR Not Detected Preliminary micro results at discharge 06/23/22 00:25 Blood Culture - Preliminary Blood - Venous No growth after 24 hours. 06/23/22 00:25 Blood Culture - Preliminary Blood - Venous No growth after 24 hours. Discharge Plan Discharge Anticipated Discharge Date/Time: 06/24/22 10:26 Patient Disposition: Home, Self-Care Discharge Diagnosis: Shigelosis Referrals: Physician,Unknown J [Primary Care Provider] - 1 Week Discharge Medications: New ciprofloxacin HCl [Cipro] 500 mg tablet 500 mg PO BID Qty: 10 0RF Continued dextroamphetamine-amphetamine 20 mg tablet 1 tab PO DAILY Discharge Orders: Discharge Order (Routine); Ordered 06/24/22 Ordered By: Cortes Sánchez Diet: Advance to usual diet Activity on Discharge: As tolerated Stand Alone Forms: Patient Portal Discharge page Care Plan Goals: Full recovery from shigela gastroenteritis/colitis Health Concerns: Shigella colitis, gastroenteritis Plan of Treatment: Take Ciprofloxacin as directed and follow up with your doctor in a week, Wash your hands very carefully after using washrooms Assessment: as above
== END 2022-06-24 11:07 | disposition home or self-care (01) | DRG 373 ==
LOC: HO.ED 06-23 06:10 → HO.EDOVER 06-23 06:56 → HO.S3 06-23 07:22
PROVIDERS: Physician Assistant; Admitting Provider Student in an Organized Health Care Education/Training Program; Emergency Provider Emergency Medicine; Visit Provider Internal Medicine
DX: A03.9 Shigellosis, unspecified (principal); Z20.822 Contact with and (suspected) exposure to COVID-19; Z79.899 Other long term (current) drug therapy
CPT/HCPCS: 0241U; 36415; 71045; 74177; 80048; 81001; 83605; 85025; 87040; 87493; 87507; 99285; J1956; Q9967